=== PATIENT | female | born 1960 | race Caucasian/White ===

== ENCOUNTER 2018-12-29 02:51 | Inpatient (IN) ==
[2018-12-29] MEDS ORDERED: CARDIZEM IV ONE ×2 (03:09→04:25)
--- NOTE | 2018-12-29 03:15 | PROVIDER DOCUMENTATION ---
HPI-General Adult - General Chief Complaint: Palpitations Stated Complaint: HEART PALPITATIONS Time Seen by Provider: 12/29/18 03:00 Source: patient Allergies/Adverse Reactions: Patient Allergies Allergy/AdvReac Type Severity Reaction Status Date / Time minocycline HCl * Allergy Unknown Verified 12/29/18 03:11 [From Jo] Home Medications: Home Medication List Medication Instructions Recorded Confirmed Last Taken Type Aspirin 81 mg PO DAILY 12/29/18 12/29/18 12/28/18 History Cetirizine HCl [Zyrtec] 10 mg PO PRN PRN 12/29/18 12/29/18 Unknown History Furosemide [Lasix] 20 mg PO DAILY 12/29/18 12/29/18 12/28/18 History Levothyroxine [Synthroid] 100 microgm PO DAILY 12/29/18 12/29/18 12/28/18 History Losartan Potassium 100 mg PO DAILY 12/29/18 12/29/18 12/28/18 History Metoprolol [Lopressor] 50 mg PO BID 12/29/18 12/29/18 12/28/18 History Omeprazole 20 mg PO DAILY 12/29/18 12/29/18 12/28/18 History - History of Present Illness -Gen Adult Nature of Presenting Problems: 58 y/o F presents to the ED complaining of palpitations. States these began at about 10pm and have persisted since. states she has had SVT in the past but states this feels different as it seems irregular. No dyspnea no nausea no diaphoresis. Takes metoprolol for her SVT and has been complaint with this. No prior history of afib Review of Systems - Adult - REVIEW OF SYSTEMS - ADULT Constitutional: reports: no symptoms reported Eyes: reports: no symptoms reported Ears, Nose, Mouth & Throat: reports: no symptoms reported Cardiovascular: reports: palpitations Respiratory: reports: no symptoms reported Gastrointestinal: reports: no symptoms reported Genitourinary: reports: no symptoms reported Musculoskeletal: reports: no symptoms reported Integumentary: reports: no symptoms reported Neurological: reports: no symptoms reported Psychiatric: reports: no symptoms reported Endocrine: reports: no symptoms reported Hematologic/Lymphatic: reports: no symptoms reported Allergic/Immunologic: reports: no symptoms reported All Other Systems: Reviewed and Negative Past History - Adult - PAST MEDICAL HISTORY-ADULT Review of Records: reports: Old Records Reviewed, Nursing Assessment Review, Medications Reviewed, Social history reviewed & non-contributory. Cardiovascular: reports: cardiac disease (SVT), HTN Gastrointestinal: reports: diverticulosis, GERD Musculoskeletal: reports: arthritis Endocrine/Immune: reports: lupus, thyroid disorder - PRIOR SURGERIES/PROCEDURES Surgical/Procedure History: reports: cholecystectomy, orthopedic (extremity) (carpal tunnel) - IMMUNIZATION STATUS Childhood Immunizations: See Nurse Assessment Flu Vaccine: See Nurse Assessment Physical Exam-General - PHYSICAL EXAM-ADULT Initial Vital Signs Reviewed: Yes - CONSTITUTIONAL General Appearance: appears well, alert, no apparent distress - EYES Eyes: PERRL/EOMI - HEAD, EARS, NOSE, MOUTH & THROAT HENMT: normocephalic/atraumatic, moist mucous membranes, normal ENT inspection - NECK Neck: non-tender, full range of motion, supple - RESPIRATORY Respiratory: chest non-tender, lungs clear, normal breath sounds - CARDIOVASCULAR Cardiovascular: normal peripheral pulses, no edema, no JVD, tachycardia, irregularly irregular - GASTROINTESTINAL (ABDOMEN) Abdominal Exam: normal bowel sounds, non tender, soft - MUSCULOSKELETAL Back Exam: normal inspection, no CVA tenderness, no vertebral tenderness Extremity: normal range of motion, non-tender - SKIN Integumentary: normal color, normal turgor, warm/dry - NEUROLOGIC Neurologic: grossly normal, no motor/sensory deficits - PSYCHIATRIC Psych/Mental Status: normal mood/affect, normal thought content, normal thought process, oriented x 3 Progress - PLAN OF CARE/RESULTS Progress/Plan/Lab Results: Vital Signs - 8 hr 12/29/18 02:52 Temperature 98.1 F Pulse Rate 124 H Respiratory Rate 18 Blood Pressure 203/110 O2 Sat by Pulse Oximetry 98 Orders Category Date Time Status IV Insertion ORDERED Care 12/29/18 03:09 Ordered BASIC METABOLIC PANEL [CHEM] Stat Lab 12/29/18 03:09 Uncollected CBC WITH DIFF [HEME] Stat Lab 12/29/18 03:09 Uncollected MAGNESIUM [CHEM] Stat Lab 12/29/18 03:09 Uncollected TROPONIN T Stat Lab 12/29/18 03:09 Uncollected Diltiazem [Cardizem] Med 12/29/18 03:09 Once 20 mg IV NOW ONE palpitations with new onset afib on EKG. Will treat and will further evaluate for causes including but not limited to acs, arrythmia, electrolyte imbalance Result Diagrams: 12/29/18 03:35 12/29/18 03:35 - REASSESSMENT Reassessment #1 Status: improving (HR improved to 110's with slight continued palpitations. Diltazen gtt started and will admit. Discused case with Dr. Beaulieu, Hospitalist, who will see and admit pt.) - EKG 1 Time of EKG reading by physician:: 02:58 EKG Read and Signed by:: Adriana Becerra EKG Interpretation (*Must complete 3 of following elements*): Abnormal (Atrial fibrillation, rate 134, no acute st changes, normal axis and intervals) Departure - Departure Date of Disposition Decision: 12/29/18 Time of Disposition Decision: 06:10 DIAGNOSIS: Atrial fibrillation Qualifiers: Atrial fibrillation type: unspecified Qualified Code(s): I48.91 - Unspecified atrial fibrillation Disposition: ADMITTED INPATIENT 09 Certified Medical Emergency: Emergent Condition: Fair - Critical Care Note This patient required my direct & personal management of CC.: Yes Total Time (mins): 35 Critical Care Statement: This patient required my direct personal management to treat or rule out processes, the absence of which, could potentiallly result in sudden, clinically significant life or limb threatening deterioration. Attestation - Physician/ DARIELA Attestation Patient care was provided by Advanced Practice Provider:: No The physician spent face to face time with patient:: Yes Advanced Practice Provider documentation review:: Supervising physician onsite and consulted in the evaluation and care of this patient. The physician did have a face to face encounter with the patient.
[2018-12-29 03:54] LABS: BASO% 1.3 % (0.0-0.8); EOS# 0.23 X1000 (0.0-0.7); EOS% 3.1 % (0.0-10.0); HEMATOCRIT 39.3 % (37.0-47.0); HEMOGLOBIN 13.1 g/dL (12.0-16.0); IMM GRAN# 0.02 X1000 (0.0-0.04); IMM GRAN% 0.3 % (0.0-0.5); LYMPH# 1.88 X1000 (1.2-3.4); LYMPH% 25.1 % (20.5-51.1); MCH 26.1 PG (27-31); MCHC 33.3 g/dL (33-37); MCV 78.4 FL (81-99); MONO# 0.51 X1000 (0.11-0.59); MONO% 6.8 % (1.7-9.3); MPV 11.2 FL (7.4-10.4); NEUT# 4.75 X1000 (1.4-6.5); NEUT% 63.4 % (42.2-75.2); PLT 259 X1000 (130-400); RBC 5.01 XMIL (4.2-5.4); RDW 15.8 % (11.5-14.5); WBC 7.49 X1000 (4.8-10.8)
[2018-12-29 04:10] LABS: CALCIUM 9.5 mg/dL (8.8-10.2); MAGNESIUM 2.1 mg/dL (1.5-2.7); POTASSIUM 4.3 mmol/L (3.5-5.1)
[2018-12-29] MEDS ORDERED: ZOFRAN IV PRN (06:45)
[2018-12-29] MEDS ORDERED: NS 1,000 ML IV SCH (06:45)
[2018-12-29] MEDS ORDERED: TYLENOL PO PRN (06:45)
[2018-12-29] MEDS ORDERED: ZYRTEC PO PRN (06:51)
[2018-12-29] MEDS: CARDIZEM 125 MG/D5W 125 MG/125 ML IVPB IV SCH ×2 (07:13→08:17)
[2018-12-29] MEDS: SYNTHROID PO SCH (09:00)
[2018-12-29] MEDS: LOPRESSOR PO SCH ×2 (09:00→21:23)
--- NOTE | 2018-12-29 09:20 | HISTORY AND PHYSICAL ---
HISTORY OF PRESENT ILLNESS: This is a 58-year-old who presented to the emergency room. She started noticing just a little decreased energy but also palpitations described as rapid and irregular. She has had a history of supraventricular tachycardia before but it was associated with hyperthyroidism. This had been about 4 or 5 years ago. She has not had much trouble since that time. She did have thyroid ablation with radioactive iodine. She has never had any coronary artery disease that she is aware of. In family history, her father did have atrial fibrillation. REVIEW OF SYSTEMS: She denies any fever or chills. Denies any pleuritic pain. Denies any real shortness of breath. PAST MEDICAL HISTORY: 1. SVT diagnosed about the time she had hyperthyroidism about 4 years ago, was put on metoprolol and has not really had any problems. She also had thyroid ablation. 2. Hyperthyroidism. Took p.o. radioactive iodine for thyroid ablation, is on thyroid supplement. 3. Hypertension. 4. Autoimmune disorders, polymyositis, and discoid lupus. She was on Imuran for a while but she has been off that for several years and not having any symptoms in relation to that. SURGICAL HISTORY: Really unremarkable except she had her gallbladder out. She has had carpal tunnel on the left, uterine ablation for heavy menstrual bleeding. FAMILY HISTORY: Father with atrial fibrillation, had to have ablation and a pacemaker. SOCIAL HISTORY: Lives in [place]. Negative for alcohol or tobacco. . ALLERGIES: Minocin. REVIEW OF SYSTEMS: General: No weight gain or loss. No fever or chills. HEENT: Unremarkable. Respiratory: No increased work of breathing or dyspnea. Cardiovascular: No chest pain or tachy palpitations. GI and : Unremarkable. Musculoskeletal and Neurologic: No significant complaints. Endocrinologic and Hematologic: No significant history. Cardiovascular: Unremarkable except for above with recent palpitations and a history of SVT. PHYSICAL EXAMINATION: VITAL SIGNS: In the emergency room, temperature 98.1 degrees, pulse 78, respirations 15, blood pressure 122/81. HEENT: Pupils are equal and round. RESPIRATORY: Lungs are clear in all lung powell. CARDIOVASCULAR EXAMINATION: She has irregular rhythm, irregular rate. PMI nondisplaced. ABDOMEN: Soft. SKIN: Warm and dry. VASCULAR: Carotid, radial, femoral, popliteal and pedal pulses 2+ and symmetrical. SKIN: Without any rashes. NECK: Supple. No thyromegaly. No lymphadenopathy appreciated. HEIGHT AND WEIGHT: Height is 5 feet 8 inches. Her weight was 245. LAB: White count 7490, hematocrit is 39, platelet count is 259,000. Sodium 144, potassium 4.3, chloride 107, bicarb 25, BUN 17, creatinine 1.0, blood sugar 156. Troponin was less than 0.01. Magnesium 2.1. ASSESSMENT AND PLAN: 1. Paroxysmal atrial fibrillation, new onset with rapid ventricular rate. We will see if we can control the rate and put her up in [facility]. I think she has seen Dr. Carson Rao in the past, will see cardiology. Check an echocardiogram. Of course, we need to check her thyroid functions, T4, TSH, B12, and folate. We will give her normal saline and run it at 85 mL an hour. As far as her home medicines, she is on aspirin. We will continue 81 mg a day. We will hold the Lasix. We will continue her Synthroid 100 mcg daily, losartan 100 mg a day, Lopressor 50 mg twice a day, and omeprazole 20 mg a day. 2. History of hyperthyroidism, status post ablation. We do need to check her thyroid functions. We will check T4 and TSH. Continue her present Synthroid. 3. History of hypertension. Right now, she is getting metoprolol 50 mg twice a day. I think we will go up to 50 mg 3 times a day, see if that will help control rate, so she will get 50 mg every 8 hours. Consult cardiology. cc: Prakash Henry MD
[2018-12-29] MEDS: LASIX PO SCH (14:21)
[2018-12-29] MEDS: ASPIRIN PO SCH (14:21)
[2018-12-29] MEDS: COZAAR PO SCH (14:22)
[2018-12-29] MEDS: LOVENOX SUBQ SCH (14:23)
[2018-12-29] MEDS: PRILOSEC PO SCH (14:23)
--- NOTE | 2018-12-29 14:58 | ECHO REPORT ---
ORDER DATE: 12/29/2018 INTERPRETING PHYSICIAN: Dr. Mott REQUESTING PHYSICIAN: CLINICAL INDICATIONS: This is a 58-year-old female with atrial fibrillation. M-MODE MEASUREMENTS: Right ventricle: cm. Left ventricle end diastole: 5.0 cm. Left ventricle end systole: 2.8 cm. Posterior wall: 1.1 cm. Interventricular septum: 1.1 cm. Left atrium: 3.9 cm. Aortic root: 3.4 cm. SUMMARY OF 2-DIMENSIONAL IMAGIN. Left ventricular function appears to be normal. Ejection fraction estimated at 60% to 65%. No wall motion abnormality noted. 2. Optison was injected to optimize visualization of endocardium. 3. The right-sided chamber appeared to be enlarged on the 4-chamber view, however, not so much on the basal short axis and parasternal axis. 4. There is a trivial, probably physiologic, pericardial effusion. 5. Mitral valve is grossly normal. Color flow mapping indicates minimal degree of regurgitation. 6. Pulse wave Doppler of mitral inflow shows a single filling wave. The patient is in atrial fibrillation. 7. Aortic valve appears to be grossly normal. Doppler interrogation is unremarkable. 8. Pulmonic valve also appears to be grossly normal. Doppler interrogation shows trivial degree of regurgitation. 9. Tricuspid valve looks grossly normal. Color flow mapping is unremarkable. 10.Inferior vena cava is not dilated. 11.Pulmonary systolic pressure is estimated at 23 to 28 mmHg. Clinical correlation is recommended. cc: MD Dejan Boyd CRNP
--- NOTE | 2018-12-29 15:19 | CARDIOLOGY CONSULTATION ---
DATE: 12/29/2018 REQUESTING PHYSICIAN: Hospitalist Service. REASON FOR CONSULTATION: Patient with atrial fibrillation, palpitations. CHIEF COMPLAINT: Palpitations. HISTORY: Ms. Hdez is a 58-year-old female. She works here at [employer]. The patient presented because for several hours, she noted sudden onset of palpitations. This did not seem to get any better, and decided to come to the emergency room for evaluation. Upon presentation, they did an EKG that showed atrial fibrillation with rapid response. EKG dated is actually 2:57 a.m. today and shows a rate of 134 beats per minute with nonspecific ST. She reports no chest pain, shortness of breath, edema, or syncope. PAST MEDICAL HISTORY: Positive for supraventricular tachycardia in the past. She has been diagnosed with sleep apnea syndrome. She has hypertension. She has hyperlipidemia. In the past, she has been diagnosed with hyperthyroidism and polymyositis. Those conditions appear to be under control. There has been no recurrence of either one of those two. She has a diagnosis of diverticulosis in the past. PAST SURGICAL HISTORY: Includes section, left carpal tunnel syndrome, cholecystectomy, uterine ablation. She has received radioactive iodine to treat her hyperthyroidism. SOCIAL HISTORY: She is . She has one daughter. She is not a smoker nor a drinker. FAMILY HISTORY: Father had coronary heart disease. MEDICATIONS: Home medications at the time of this admission, included aspirin 81 daily, metoprolol 50 twice a day, losartan 100 daily, levothyroxine 100 mcg daily, furosemide 20 mg daily, cetirizine 10 mg daily. ALLERGIES: Minocycline. REVIEW OF SYSTEMS: Basically, she says that she has been under some extra stress because of a guest that is staying at her house. That is creating some extra issues. Her previous cardiac evaluation included an echocardiogram in 2014 that showed normal left ventricular systolic function with no significant valvular abnormalities. PHYSICAL EXAMINATION: Vital Signs: Blood pressure 126/99, pulse 112, respirations 29, temperature 91 degrees. General: The patient is awake, alert, oriented, in no distress. HEENT: Unremarkable. Chest: Clear to auscultation and percussion. Heart: Heart sounds are irregularly irregular. No gallop or murmur. Abdomen: Nontender, soft. No masses. No hepatomegaly. Extremities: Good pulses. No peripheral edema. Neurological: Nonfocal. Moves 4 extremities. LABORATORY DATA: White cell count 7490, hemoglobin 13.1, hematocrit 39.3%. Sodium is 144, potassium 4.3, BUN 17, creatinine 1.0. The patient weighs, at this time, 245 pounds. She has gained about 13 pounds since the last visit. IMPRESSION: Patient presented with: 1. Paroxysmal atrial fibrillation. 2. History of hypertension. 3. Obesity. 4. History of hyperthyroidism in the past, as well as history of polymyositis in the past. 5. Sleep apnea syndrome. RECOMMENDATION: At this time, we will try to manage her tachycardia with beta blockers. I believe we will go ahead and put her on sotalol 80 twice a day, and see if that helps to convert back to sinus rhythm. At some point, the patient is going to need to do an ischemic workup. Previously, she has had only echocardiograms. No stress test. We will discuss with her about doing it once her rhythm returns back to normal. We will give further recommendations depending on her clinical course. cc: Sebastián Mott MD
[2018-12-30 05:53] LABS: BASO# 0.05 X1000 (0.0-0.2); BASO% 0.8 % (0.0-0.8); EOS# 0.14 X1000 (0.0-0.7); EOS% 2.2 % (0.0-10.0); HEMATOCRIT 39.8 % (37.0-47.0); HEMOGLOBIN 13.1 g/dL (12.0-16.0); IMM GRAN# 0.02 X1000 (0.0-0.04); IMM GRAN% 0.3 % (0.0-0.5); LYMPH# 1.41 X1000 (1.2-3.4); LYMPH% 22.6 % (20.5-51.1); MCH 26.3 PG (27-31); MCHC 32.9 g/dL (33-37); MCV 79.9 FL (81-99); MONO% 6.4 % (1.7-9.3); MPV 11.5 FL (7.4-10.4); NEUT# 4.23 X1000 (1.4-6.5); NEUT% 67.7 % (42.2-75.2); PLT 272 X1000 (130-400); RBC 4.98 XMIL (4.2-5.4); RDW 16.1 % (11.5-14.5); WBC 6.25 X1000 (4.8-10.8)
[2018-12-30] MEDS: SYNTHROID PO SCH (06:17)
[2018-12-30] MEDS: PRILOSEC PO SCH (06:17)
[2018-12-30 06:20] LABS: CALCIUM 9.6 mg/dL (8.8-10.2); CREATININE 1.1 mg/dL (0.5-0.9); POTASSIUM 3.9 mmol/L (3.5-5.1)
[2018-12-30 06:49] LABS: FREE T4 1.56 ng/dL (0.93-1.70)
[2018-12-30] MEDS: LOPRESSOR PO SCH (09:13)
[2018-12-30] MEDS: COZAAR PO SCH (09:13)
[2018-12-30] MEDS: LASIX PO SCH (09:13)
[2018-12-30] MEDS: LOVENOX SUBQ SCH (09:13)
[2018-12-30] MEDS: ASPIRIN PO SCH (09:13)
--- NOTE | 2018-12-30 09:19 | PROGRESS NOTE ---
DATE: 12/30/2018 SUBJECTIVE: She converted back to sinus rhythm about 8:30 yesterday evening. She was started on sotalol. She feels good. No chest pain and breathing comfortably. Remains afebrile. OBJECTIVE: Vital Signs: Temperature 98.1 degrees, pulse 74, respirations 16, blood pressure 118/66. HEENT: Pupils are equal round. Lungs: Clear anterolateral and posterior. Cardiovascular: Regular rate without murmur or S3. No distended neck veins. Skin: Warm and dry. Urine output just yesterday was about 300 mL. ASSESSMENT AND PLAN: 1. Paroxysmal atrial fibrillation. No sign of ischemia. I think we could pursue a Myoview GXT. We will see what Dr. Mott wants to do. She is back in sinus rhythm. I do not think she would need an anticoagulant long-term at this point. 2. She has had some sleep apnea. 3. Anxiety, a difficult home situation at this point. 4. History of primary hypothyroidism and she has normal thyroid function. Continue present Synthroid. Note that her cardiac enzymes are negative. Note that B12 is and folate looked healthy. cc: Prakash Henry MD
--- NOTE | 2018-12-30 09:21 | EKG Report ---
Test Performed on : 12/30/2018 09:14:21 AM Test Reason : Confirm Rhythm Blood Pressure : / mmHG Vent. Rate : 075 BPM Atrial Rate : 075 BPM P-R Int : 124 ms QRS Dur : 086 ms QT Int : 416 ms P-R-T Axes : 014 015 038 degrees QTc Int : 464 ms Normal sinus rhythm. Nonspecific ST and T wave abnormality Abnormal ECG When compared with ECG of 29-DEC-2018 02:57, (Unconfirmed) Sinus rhythm. has replaced Atrial fibrillation. Vent. rate has decreased BY 59 BPM Confirmed by Carl BROWN, Prakash Dominguez ([id number]) on 12/31/2018 10:01:34 AM
--- NOTE | 2018-12-30 09:52 | EKG Report ---
Test Performed on : 12/29/2018 02:57:02 AM Test Reason : ED. NO EKG ORDER FOR MUSE Blood Pressure : / mmHG Vent. Rate : 134 BPM Atrial Rate : 166 BPM P-R Int : 000 ms QRS Dur : 084 ms QT Int : 314 ms P-R-T Axes : 000 019 014 degrees QTc Int : 468 ms Atrial fibrillation. with rapid ventricular response. Nonspecific ST abnormality Abnormal ECG When compared with ECG of 16-APR-2015 06:12, Atrial fibrillation. has replaced Sinus rhythm. ST now depressed in Inferior leads Nonspecific T wave abnormality now evident in Inferior leads Nonspecific T wave abnormality now evident in Anterior leads Unconfirmed Result
[2018-12-30 15:19] VITALS: BP 129/61
--- NOTE | 2018-12-30 16:13 | CARDIOLOGY PROGRESS NOTE ---
DATE: 12/30/2018 CHIEF COMPLAINT: Irregular heart beat/palpitations. SUBJECTIVE: Ms. Hdez is feeling back to normal. She is not having any problems. She has converted to sinus rhythm. EKG done at 9:14 a.m. shows sinus rhythm, rate 75 beats per minute. FL 124 milliseconds. QRS 86 milliseconds. QTC is normal. Patient is ambulating. OBJECTIVE: Vital Signs: Blood pressure 129/61, temperature 98.3, pulse 77, respirations 18. General: She is awake, alert, oriented, in no distress. HEENT: Unremarkable. Chest: Clear to auscultation and percussion. Heart: Heart sounds are regular and rhythmic. No gallop or murmur. Abdomen: Nontender. Extremities: Show no edema. Neurological: Follows commands. Moves four extremities. LABORATORY DATA: BUN 16, creatinine 1.1, sodium 141, potassium 3.9. IMPRESSION: Patient presented with: 1. Palpitations, paroxysmal atrial fibrillation. 2. History of hypertension. 3. History of sleep apnea syndrome. 4. Obesity. RECOMMENDATIONS: At this time, I think the patient is safe to go home. We will put her on sotalol low dose 80 mg twice a day. Her echocardiogram from yesterday shows normal left ventricular ejection fraction, no wall motion abnormality. She has no obvious structural heart disease. Her troponin was negative. At this time, the patient may be discharged and follow up with us on Sunday and to have an EKG done. She will thereafter have a 30-day personnel monitor and she will continue her followup with Dr. Carson Rao. cc: Sebastián Mott MD [facility]
--- NOTE | 2018-12-30 16:40 | DISCHARGE SUMMARY ---
ADMISSION DATE: 12/29/2018 DISCHARGE DATE: HISTORY OF PRESENT ILLNESS: She is followed by Dr. Mode Moreno. A 58-year-old who presents to the emergency room. She noticed she had decreased energy and some palpitations and she was in atrial fibrillation with a slight rapid ventricular rate. She has had a history of supraventricular tachycardia before, which was associated with hyperthyroidism. PAST MEDICAL HISTORY: 1. Includes SVT diagnosed about time she had hyperthyroidism, which is about 4 years ago. She was put on some metoprolol and I think she took radioactive iodide. 2. Hyperthyroidism treated with radioactive iodine. 3. Hypertension. 4. Autoimmune disorder in the past, polymyositis, and discoid lupus. She took Imuran for a while and then this resolved. She has not had further trouble. HOSPITAL COURSE: Admitted. Serial cardiac enzymes and EKG consistent with atrial fibrillation. She converted back to sinus rhythm about 8:30 the evening of admission after just a couple hours. Dr. Mott was consulted. He felt it was paroxysmal atrial fibrillation, did not see any sign of ischemia, put her on sotalol and she has remained in sinus rhythm. Blood pressure looked good. [place] she could go home with plans as an outpatient, maybe do a Myoview cardiac scan, does not show any sign of ischemia. So we will let her go on aspirin 81 mg a day. She is taking Zyrtec 10 mg a day, Synthroid 100 mcg daily, Cozaar 100 mg daily, Prilosec 20 mg a day, Betapace or sotalol 80 mg b.i.d. She will follow up with Dr. Mode Moreno and Dr. Mott in a couple of weeks. cc: Prakash Henry MD
[2018-12-30] MEDS ORDERED: BETAPACE PO SCH (21:00)
== END 2018-12-30 17:50 | disposition home or self-care (01) | DRG 309 ==
LOC: ED 02:51 → SUATTDRO 02:52 → EDIPHOLD 02:52 → 3S 17:09
PROVIDERS: ATTEND Emergency Medicine
CPT/HCPCS: 80048; 82607; 82746; 83735; 84439; 84443; 84484; 85025; 93005; 93010; 93306; 96365; 96366; 96372; 96375; 96376; 99285; A9270; C8929; J1650; J7030; Q9957